=== PATIENT | female | born 1990 | race Hispanic/Latino ===

== ENCOUNTER 2017-12-09 14:25 | Outpatient (CLI) | payer BC ==
[2017-12-09] MEDS ORDERED: Gadobenate Dimeglumine 529 MG/1 ML (20ML VIAL) ONE (15:24)
--- NOTE | 2017-12-09 15:57 | MRI ---
MRI BRAIN WITH AND WITHOUT CONTRAST: 12/09/17 Multiplanar and multisequential imaging of the brain obtained. Postcontrast images were obtained with administration of 10 mL Multihance IV. Pituitary protocol was followed with images through the pitui tary preformed in the coronal and sagittal plane with dynamic enhancement. INDICATION: Hyperprolactinemia. FINDINGS: Ventricles have normal size and position. No restricted diffusion. On flash sequence, there is a white matter hyperintensity seen in the subcortical white matter right frontal lobe measuring approximately 6 mm. There are a few other tiny white matter hyperintensities. The white matter foci are nonspecific. The pituitary has normal size and appearance. The dynamic phase sequences are degraded by motion artifact. There is a tiny focus of low signal on t he dynamic phase images in the mid pituitary measuring in the 2 to 3 mm range. This could potentially represent a tiny microadenoma. No abnormal enhancement seen within the brain parenchyma. The paranasal sinuses and mastoids are lis r. Dural venous sinuses and vascular structures show normal flow voids. IMPRESSION: 1. Tiny focus of low signal in the pituitary on dynamic enhancement could represent a tiny micro adenoma. Recommend followup exam in 6 to 12 months to assess stability. 2. There are nonspecific small white matter hyperintensities, the largest in the right frontal l obe. These are nonspecific and can be seen with vascular headaches or other nonspecific etiologies. T his does not have an appearance of a demyelinating process. These white matter foci can also be follo wed on followup exam. POS: [facility]
== END 2017-12-09 14:26 | disposition home or self-care (01) ==
LOC: TBSIIMAG 14:25
PROVIDERS: ATTEND Internal Medicine
DX: E22.1 Hyperprolactinemia (principal); R93.8 Abnormal findings on diagnostic imaging of other specified body structures
CPT/HCPCS: 70553; A9579

== ENCOUNTER 2017-12-28 09:37 | Outpatient (CLI) | payer BC | END 2017-12-28 09:38 | disposition home or self-care (01) | LOC: CTENTCT 09:37 | PROVIDERS: ATTEND Otolaryngology Plastic Surgery within the Head & Neck | DX: J32.9 Chronic sinusitis, unspecified (principal) | CPT/HCPCS: 70486 ==

== ENCOUNTER 2020-04-15 12:50 | Inpatient (IN) | payer BC ==
[2020-04-15] MEDS ORDERED: NS / Oxytocin 40 units/1000ml 1,000 ML IV PRN (13:08)
[2020-04-15] MEDS ORDERED: Acetaminophen 500 MG TAB PO PRN (13:08)
[2020-04-15] MEDS ORDERED: Docusate 100 MG CAP PO PRN (13:08)
[2020-04-15] MEDS ORDERED: Promethazine HCl 25 MG/ML VIAL IM PRN (13:08)
[2020-04-15] MEDS ORDERED: Diphenoxylate HCl/Atropine Tablet PO PRN ×2 (13:08)
[2020-04-15] MEDS ORDERED: Lidocaine 1% (PF) 30 ML VIAL SC PRN (13:08)
[2020-04-15] MEDS ORDERED: Ondansetron PF 4 MG/2 ML Vial IVP PRN (13:08)
[2020-04-15] MEDS ORDERED: HYDROcodone/Acetaminophen 5/325 mg Tablet PO PRN ×2 (13:08)
[2020-04-15] MEDS ORDERED: hydrALAZINE 20 MG/ML VIAL SLOW IVP PRN (13:08)
[2020-04-15] MEDS ORDERED: Misoprostol 200 MCG TAB PR PRN (13:08)
[2020-04-15] MEDS ORDERED: Ibuprofen 800 MG TAB PO PRN (13:08)
[2020-04-15 13:57] LABS: Hemoglobin 12.5 g/dL (12.0-16.0); Mean Corpuscular HGB CONC 33.8 g/dL (32.0-36.0); Mean Corpuscular Volume 82.7 fL (78.0-98.0); Mean Platelet Volume 9.3 fL (7.4-10.4); Platelet Count 201 thou/uL (130-400); RBC Distribution Width 13.7 % (11.5-14.5); Red Blood Cell (RBC) Count 4.48 mill/uL (4.20-5.40)
[2020-04-15 14:37] LABS: HBSAg Index 0.57 S/CO (0-0.99); Hep B Surf Ag Non-Reactive S/CO (NonReactive); Syphilis Antibody Nonreactive (Nonreactive); Syphilis Antibody Index 0.05 S/CO (<1.00 Non-Reactive)
[2020-04-15 14:48] VITALS: BMI 41.5
[2020-04-15] MEDS: Lactated Ringer's 1,000 ML IV SCH ×2 (18:59→19:46)
[2020-04-15] MEDS ORDERED: NS w/ Oxytocin 10 units 500 ML IVPB SCH (19:15)
[2020-04-15] MEDS ORDERED: NPH, Human Insulin Isophane 300 UNIT/3 ML VIAL SC SCH (21:00)
[2020-04-16] MEDS: Lactated Ringer's 1,000 ML IV SCH (03:57)
[2020-04-16] MEDS: Butorphanol Tartrate 1 MG/ML VIAL SLOW IVP PRN ×2 (07:34→11:45)
[2020-04-16] MEDS ORDERED: metFORMIN 500 MG TAB PO SCH (08:00)
[2020-04-16] MEDS ORDERED: Aspirin Chewable 81 MG TAB PO SCH (09:00)
[2020-04-16] MEDS ORDERED: NPH, Human Insulin Isophane 300 UNIT/3 ML VIAL SC SCH (09:00)
[2020-04-16] MEDS ORDERED: Bicitra 30 ML UDCUP ONE (16:36)
[2020-04-16] MEDS ORDERED: Azithromycin 500 MG VIAL ONE (16:36)
[2020-04-16] MEDS ORDERED: Fentanyl 100 MCG/2 ML VIAL ONE (16:50)
[2020-04-16] MEDS ORDERED: PHENYLEPHRINE-NS 100 MCG/ML 10 ML SYRINGE ONE (16:51)
[2020-04-16] MEDS ORDERED: Ondansetron PF 4 MG/2 ML Vial ONE (16:51)
[2020-04-16] MEDS ORDERED: Morphine PF 10 MG/10 ML VIAL ONE (16:51)
[2020-04-16] MEDS ORDERED: Oxytocin 10 UNITS/ML VIAL ONE (16:51)
[2020-04-16] MEDS ORDERED: Ketorolac Tromethamine 30 MG/ML VIAL IVP PRN (17:07)
[2020-04-16] MEDS ORDERED: Promethazine HCl 25 MG SUPP PR PRN (17:07)
[2020-04-16] MEDS ORDERED: Ondansetron PF 4 MG/2 ML Vial IVP PRN ×2 (17:07→18:36)
[2020-04-16] MEDS ORDERED: diphenhydrAMINE 50 MG/ML VIAL IVP PRN (17:07)
[2020-04-16] MEDS ORDERED: Ondansetron HCl/PF 4 MG/2 ML Vial IVP PRN (17:07)
[2020-04-16] MEDS ORDERED: Naloxone HCl 0.4 mg/ml Vial IVP PRN ×2 (17:07)
[2020-04-16] MEDS ORDERED: Promethazine HCl 25 MG/ML VIAL IM PRN (17:07)
[2020-04-16] MEDS ORDERED: Naloxone HCl 0.4 mg/ml Vial IV PRN (17:07)
[2020-04-16] MEDS ORDERED: Communication Order-Pharmacy FS SCH (17:15)
[2020-04-16] MEDS ORDERED: Carboprost 250 MCG/ML AMP ONE (17:49)
[2020-04-16] MEDS ORDERED: Methylergonovine 0.2 MG/ML VIAL ONE (17:50)
[2020-04-16] MEDS ORDERED: Acetaminophen 325 MG Suppository PR SCH (18:00)
[2020-04-16] MEDS ORDERED: Misoprostol 200 MCG TAB PR PRN (18:36)
[2020-04-16] MEDS ORDERED: diphenhydrAMINE 25 MG CAP PO PRN (18:36)
[2020-04-16] MEDS ORDERED: Zolpidem Tartrate 5 MG TAB PO PRN (18:36)
[2020-04-16] MEDS ORDERED: Simethicone Chewable 80 MG TAB PO PRN (18:36)
[2020-04-16] MEDS ORDERED: hydrALAZINE 20 MG/ML VIAL SLOW IVP PRN (18:36)
[2020-04-16] MEDS ORDERED: Lanolin Ointment 7 GM TUBE TOP PRN (18:36)
[2020-04-16] MEDS ORDERED: Bisacodyl 10 MG SUPP PR PRN (18:36)
[2020-04-16] MEDS ORDERED: Acetaminophen 325 MG TAB PO PRN (18:36)
[2020-04-16] MEDS ORDERED: NS / Oxytocin 40 units/1000ml 1,000 ML IV SCH (18:45)
[2020-04-17] MEDS: Lactated Ringer's 1,000 ML IV SCH ×5 (00:27→17:25)
[2020-04-17] MEDS: Acetaminophen 650 MG Suppository PR SCH ×3 (00:28→07:28)
[2020-04-17] MEDS: Ferrous Sulfate 325 MG TAB PO SCH ×3 (00:28→21:01)
[2020-04-17] MEDS: Docusate Calcium (SURFAK) 240 MG CAP PO SCH ×3 (00:28→21:01)
[2020-04-17] MEDS ORDERED: Enoxaparin Sodium 40 MG/0.4 ML SYRINGE SC SCH (01:00)
--- NOTE | 2020-04-17 02:02 | OP ---
DATE OF PROCEDURE: 04/16/2020 SURGEON: Praveen Uribe MD PREOPERATIVE DIAGNOSES: 1. Term intrauterine at 38 and 4/7th weeks. 2. Medical induction for gestational diabetes, oligohydramnios, grade 3 placenta. 3. Failure to progress. POSTOPERATIVE DIAGNOSES: 1. Term intrauterine at 38 and 4/7th weeks. 2. Medical induction for gestational diabetes, oligohydramnios, grade 3 placenta. 3. Failure to progress. 4. Cephalopelvic disproportion. PROCEDURE: Primary low transverse section. ANESTHESIA: Epidural catheterization. FINDINGS: 1. Failure to progress at 4 cm dilation, 50% effacement, -3 station. 2. Contracted pelvis with narrow outlet. 3. Vigorous female infant, 6 pounds 9 ounces, Apgars 8 and 9. 4. Normal uterus, tubes, and ovaries. 5. Cephalopelvic disproportion, narrow outlet, prominent sacrum. COMPLICATIONS: None. SPECIMENS REMOVED: Cord blood. BLOOD LOSS: Approximately 400 mL. DESCRIPTION OF PROCEDURE: As follows: After thorough consent and counseling, Ms. Bunn was taken to the operating room and an adequate level of anesthesia was obtained via existing epidural catheterization. The patient was prepped and draped in usual sterile fashion for abdominal surgery. A Watson was placed in the bladder, which was noted to be draining clear urine. Attention was then turned to performing the outlined surgical procedure. Team time-out was performed per protocol. A Pfannenstiel incision was made and carried sharply to the fascia, which was also sharply incised. The midline was identified. The rectus muscles were retracted laterally. The abdominoperitoneal cavity was entered with usual safeguards carried out. A retractor was placed and a bladder flap was created on the vesicouterine peritoneum. A bladder blade was then placed. A low-transverse incision was made on the well-developed lower uterine segment. Upon entering the amniotic sac, copious amount of clear amniotic fluid was visualized. The was noted to be vertex presentation in the occiput anterior position, still high in the pelvis. Head was delivered. Baby was bulb suctioned on the abdomen. Shoulders and body were then delivered in an atraumatic fashion. The cord was doubly clamped and cut. The infant was handed to the pediatric team in attendance for the delivery. The was a vigorous viable female weighing 6 pounds 9 ounces with Apgars of 8 and 9 obtained at 1 and 5 minutes respectively. Cord blood was obtained. The placenta was manually removed from the uterus. Uterus was exteriorized and good tone was noted. The low-transverse incision was closed in a running locking ligature of #1 chromic. A second imbricating layer was placed to facilitate strength and hemostasis. The vesicouterine peritoneum was reapproximated to the lower segment with running ligature of 2-0 Monocryl. Good tone and hemostasis were noted. Seprafilm was applied to the low-transverse incision and to the anterior aspect of the uterus for adhesion prevention. The posterior cul-de-sac and gutters were cleared of clot and fluid. The pelvis was carefully inspected and was noted to be contracted with a prominent sacrum. The patient was also noted to have an extremely narrow outlet and deep subpubic arch. Diagnosis of cephalopelvic disproportion was given. The uterus was returned to the abdomen. The incision was inspected and noted to be normal. Uterus, fallopian tubes, and ovaries were inspected and noted to be normal. Lap, sponge, and needle counts were correct. The peritoneum was closed with running ligature of 2-0 Vicryl. The rectus muscles were reapproximated in midline with interrupted ligatures of 2-0 Vicryl and #1 chromic suture. The fascia was then closed with two ligatures of 0 Vicryl, which were tied in the midline. Good fascial integrity was appreciated. The incision was irrigated with copious amount of warm normal saline. Hemostasis was obtained with Bovie cauterization. The subcutaneous tissue was closed with interrupted ligatures of 2-0 plain. The skin was closed with a subcuticular stitch of 4-0 Monocryl and dressed with Dermabond. Lap, sponge, and needle counts were correct x3. Estimated blood loss in the surgical procedure was approximately 500 mL. Team debriefing was performed. The patient was taken to recovery room in good condition. Immediately following surgery, the patient and family were made aware of the surgical procedure and operative findings. Questions were answered to their satisfaction. Job ID: [id number]
[2020-04-17] MEDS ORDERED: Meperidine HCl/PF 25 MG/ML VIAL IM PRN (05:15)
[2020-04-17 06:17] LABS: Hemoglobin 9.3 g/dL (12.0-16.0); Mean Corpuscular HGB CONC 34.7 g/dL (32.0-36.0); Mean Corpuscular Hemoglobin 29.4 pg (27.0-31.0); Mean Corpuscular Volume 84.9 fL (78.0-98.0); Mean Platelet Volume 9.6 fL (7.4-10.4); Platelet Count 163 thou/uL (130-400); RBC Distribution Width 13.9 % (11.5-14.5); Red Blood Cell (RBC) Count 3.17 mill/uL (4.20-5.40); White Blood Cell (WBC) Count 11.4 thou/uL (4.8-10.8)
[2020-04-17] MEDS ORDERED: Adacel (T-DAP) 0.5 ML SYRINGE IM ONE (09:00)
[2020-04-17] MEDS: Prenatal Vitamin 1 TAB PO SCH (09:10)
[2020-04-17] MEDS ORDERED: Acetaminophen 325 MG TAB PO PRN (10:00)
[2020-04-17] MEDS ORDERED: HYDROcodone/Acetaminophen 5/325 mg Tablet PO PRN (10:00)
[2020-04-17] MEDS: HYDROcodone/Acetaminophen 5/325 mg Tablet PO PRN (16:35)
[2020-04-17] MEDS: Ibuprofen 800 MG TAB PO SCH (21:02)
[2020-04-18] MEDS: Ibuprofen 800 MG TAB PO SCH ×2 (05:34→14:27)
[2020-04-18] MEDS: Lactated Ringer's 1,000 ML IV SCH ×2 (06:34→12:18)
[2020-04-18] MEDS: Prenatal Vitamin 1 TAB PO SCH (09:16)
[2020-04-18] MEDS: Ferrous Sulfate 325 MG TAB PO SCH (09:16)
[2020-04-18] MEDS: HYDROcodone/Acetaminophen 5/325 mg Tablet PO PRN ×2 (09:17→12:08)
[2020-04-18] MEDS: Docusate Calcium (SURFAK) 240 MG CAP PO SCH (09:17)
[2020-04-18 09:22] VITALS: BP 112/58; TEMP 98.2
== END 2020-04-18 17:00 | disposition home or self-care (01) | DRG 786 ==
LOC: L&D 12:50 → 3SW 04-16 20:35
PROVIDERS: ADMIT Obstetrics & Gynecology; ATTEND Obstetrics & Gynecology
PROC: 10D00Z1 Extraction of Products of Conception, Low, Open Approach (ICD-10-PCS; principal; 2020-04-16)
DX: O24.424 Gestational diabetes mellitus in childbirth, insulin controlled (principal); U07.1 COVID-19; O41.03X0 Oligohydramnios, third trimester, not applicable or unspecified; O98.52 Other viral diseases complicating childbirth; O32.4XX0 Maternal care for high head at term, not applicable or unspecified; O33.9 Maternal care for disproportion, unspecified; O36.8130 Decreased fetal movements, third trimester, not applicable or unspecified; Z3A.38 38 weeks gestation of pregnancy; Z37.0 Single live birth
CPT/HCPCS: 36415; 36416; 51702; 85027; 86780; 86850; 86900; 86901; 87340; 87635; J0595; J0690; J1200; J1650; J1815; J1885; J2210; J2270; J2405; J2590; J3010; J3490; U0003